=== PATIENT | female | born 1980 | race Caucasian/White ===

== ENCOUNTER 2023-10-12 13:05 | Emergency (ER) | payer BC | END 2023-10-12 16:38 | disposition home or self-care (01) | LOC: ERS 13:05 | DX: S61.230A Puncture wound without foreign body of right index finger without damage to nail, initial encounter (principal); E11.9 Type 2 diabetes mellitus without complications; Z79.84 Long term (current) use of oral hypoglycemic drugs; W55.01XA Bitten by cat, initial encounter | CPT/HCPCS: 99282 ==

== ENCOUNTER 2024-03-02 17:33 | Emergency (ER) | payer BC ==
[2024-03-02 18:12] LABS: Bacteria/HPF None Seen HPF (None Seen); Bilirubin Negative (Negative); Blood, Urine Negative (Negative); CAUTI Indications for Culture Pelvic or flank pain; Clarity Clear (Clear); Glucose, Urine (Dipstick) Greater than 1000 mg/dL (Negative); Ketone, Urine 80 mg/dL (Negative); Leukocyte Negative Leu/uL (Negative); Nitrite Negative (Negative); Protein, Urine (Dipstick) Negative (Neg-Trace); RBC/HPF 0-3 HPF (0-3); Squamous Epithelial 0-3 HPF (0-3); Urobilinogen Normal mg/dL (Less than 2); pH, Urine 5.5 (5.0-9.0)
[2024-03-02 18:14] LABS: Pregnancy Test - Urine (BHCG) Negative (Negative); Pregu Control Background? CLEAR/WHITE (CLR/WHITE); Pregu Control Bar Appear? YES (CONTROL BAR); Urine Culture Reflex Yes Yes
[2024-03-02 20:15] LABS: #Basophils 0.07 10x3/uL (0.0-0.2); %Basophils 0.6 % (0.0-1.0); %Eosinophils 0.3 % (0.0-10.0); %Lymphocytes 22.8 % (21.0-51.0); %Monocytes 4.8 % (0.0-10.0); %Neutrophils 70.7 % (42.0-75.0); Hematocrit 46.5 % (36.0-47.0); Hemoglobin 15.2 g/dL (12.0-16.0); Mean Corpuscular HGB CONC 32.7 g/dL (32.0-36.0); Mean Corpuscular Hemoglobin 27.1 pg (27.0-31.0); Mean Corpuscular Volume 82.9 fL (78.0-98.0); Mean Platelet Volume 10.9 fL (7.4-10.4); Platelet Count 223 10x3/uL (130-400); RBC Distribution Width 14.1 % (11.5-14.5); Red Blood Cell (RBC) Count 5.61 mill/uL (4.20-5.40)
[2024-03-02 20:33] LABS: ALT (SGPT) 17 U/L (8-55); AST (SGOT) 17 U/L (5-34); Albumin 4.1 g/dL (3.5-5.0); Alkaline Phosphatase 99 U/L (40-110); Anion Gap 15 mmol/L (10-20); BUN (Urea Nitrogen) 7 mg/dL (7.0-18.7); Bilirubin, Total 0.7 mg/dL (0.2-1.2); Calc. Creatinine Clearance 0 mL/min (70-130); Calcium 9.2 mg/dL (7.8-10.44); Carbon Dioxide 21 mmol/L (22-29); Chloride 103 mmol/L (98-107); Estimated GFR 111; Globulin 3.6 g/dL (2.4-3.5); Glucose 331 mg/dL (70-105); Lipase 11 U/L (8-78); Potassium 3.8 mmol/L (3.5-5.1); Protein, Total 7.7 g/dL (6.0-8.3); Sodium 135 mmol/L (136-145)
[2024-03-02] MEDS ORDERED: Ketorolac Tromethamine 30 MG (1 mL) VIAL ONE (23:12)
[2024-03-02] MEDS ORDERED: Ondansetron ODT 4 MG TAB ONE (23:14)
== END 2024-03-03 00:02 | disposition home or self-care (01) ==
LOC: ERS 17:33
DX: N39.0 Urinary tract infection, site not specified (principal); E11.9 Type 2 diabetes mellitus without complications
CPT/HCPCS: 36415; 74176; 80053; 81001; 81025; 83605; 83690; 85025; 87086; 96372; J1885; Q0162